=== PATIENT | female | born 1985 | race Caucasian/White ===

== ENCOUNTER → 2017-09-04 | Outpatient (CLI) | payer OTHER | LOC: BMCIMAGING 16:16 | PROVIDERS: ATTEND Internal Medicine | DX: M84.88 Other disorders of continuity of bone, other site (principal) ==

== ENCOUNTER → 2017-10-03 | Outpatient (CLI) | payer OTHER ==
[~2017-10-03] MED LIST: IOPAMIDOL (ISOVUE-300) 100 ML BTL ONE
== END ==
LOC: FIMAGING 12:51
PROVIDERS: ATTEND Internal Medicine
DX: M89.8X8 Other specified disorders of bone, other site (principal); N20.0 Calculus of kidney
CPT/HCPCS: Q9967